=== PATIENT | female | born 1995 | race Asian ===

== ENCOUNTER 2016-10-01 18:08 | Emergency (ER) | payer OTHER ==
[~2016-10-01] VITALS: Ht 167.6 cm; Wt 61.5 kg
[~2016-10-01 18:08] MED LIST: IBUP-232 PO; Z.0.NO CURRENT MEDS
[2016-10-01 18:11] VITALS: BP 110/72; PULSE 80; RESP 16; TEMP 97.9; O2SAT 98
[2016-10-01] MEDS ORDERED: BIRTH CONTROL PILLS (18:26)
--- NOTE | 2016-10-01 19:35 | PD ---
HPI Chief Complaint: Injury Time Seen by Provider: 19:15 Travel History International Travel<30 days: No Contact w/Intl Traveler<30days: No Traveled to known affect area: No History of Present Illness HPI 21-year-old female presents for evaluation of right fifth toe pain. She reports that prior to arrival she was in a foam pit and she hit her right fifth toe against a solid object. She now has pain in the shaft of the right fifth toe, aching, worse with palpation or movement. Denies any pain in the other toes or in the remaining aspects of the right foot. She has no other complaints at this time. PFSH Past Medical History Medical History: Denies Significant Hx Immunizations Current: Yes Tetanus Vaccination: > 5 Years Influenza Vaccination: No ?: Not LMP: 09/30/2015 Past Surgical History Surgical History: No Previous Surgery Social History Alcohol Use: No Tobacco Use: No Substance Use: No Allergies-Medications (Allergen,Severity, Reaction): Coded Allergies: No Known Allergies (Verified , 10/01/16) Reported Meds & Prescriptions Reported Meds & Active Scripts Active Zofran (Ondansetron HCl) 4 Mg Tab 4 Mg PO Q6HR PRN Ibuprofen 800 Mg Tab 800 Mg PO Q6HR PRN Tylenol-Codeine #3 (Acetaminophen-Codeine) 300-30 mg Tab 1 Tab PO Q4H PRN Reported [ Control Pills] Review of Systems Musculoskeletal: Positive: Limited ROM, Pain Skin: Positive Other (denies open wounds) Physical Exam Narrative GENERAL: Well-developed well-nourished female in no acute distress SKIN: Warm and dry. Extremities: There is tenderness to palpation along the shaft of the right fifth toe, in particular the proximal aspect. There is no tenderness to palpation to the metatarsals or the first through fourth toes. No open wounds. Data Data Last Documented VS Vital Signs Date Time Temp Pulse Resp B/P Pulse Ox O2 Delivery O2 Flow Rate FiO2 10/01/16 18:26 Room Air 10/01/16 18:11 97.9 80 16 110/72 98 Orders Toe (Min 2vws) (10/01/16 ) Toe (Min 2vws) (10/01/16 ) Acetamin-Codeine 300-30 Mg (Tylenol-Code (10/01/16 20:30) Ibuprofen (Motrin) (10/01/16 20:30) Ondansetron Odt (Zofran Odt) (10/01/16 20:30) Splint Or Brace Apply/Monitor (10/01/16 21:01) [facility] Medical Decision Making Medical Screen Exam Complete: Yes Emergency Medical Condition: Yes Medical Record Reviewed: Yes Interpretation(s) Right fifth toe x-ray There is a mildly displaced oblique fracture of the distal aspect of the right fifth toe proximal phalanx with slight lateral displacement and angulation of the minor distal fragment. Postreduction x-rayCONCLUSION: 1. Status post closed reduction of oblique fracture involving the right 5th proximal phalangeal shaft with no significant residual displacement noted. Differential Diagnosis Toe fracture, toe dislocation, toes sprained Narrative Course 21-year-old female with right fifth toe fracture. X-ray reveals a mildly displaced oblique fracture of the distal aspect of the right fifth toe proximal phalanx. Fracture reduction was performed and the luis tape splint was applied. Postreduction x-ray reveals good alignment with no residual displacement noted. The patient will be discharged with a postop shoe, pain medication, Zofran. The patient is traveling to [place] in 2 days to study abroad, she is encouraged to follow-up there in 1-2 weeks for recheck. Procedures Procedure Narrative Right fifth toe fracture reduction: The right fifth toe was prepped with Betadine. Digital block performed utilizing 1% lidocaine. While providing traction the fracture fragment was reduced. A luis tape splint was applied. Patient tolerated procedure well. Diagnosis Primary Impression: Fracture of fifth toe, right, closed Qualified Code: S92.501A - Fracture of fifth toe, right, closed, initial encounter Referrals: [employer] Primary Care Physician Additional Instructions: Follow-up in 1-2 weeks in [place] with a primary care physician or lighting equipment operator for recheck. Luis tape splint. Postop shoe or fracture walking boot when walking. Pain medication as needed. Do not drive, drink alcohol when taking Tylenol with Codeine as it may cause sedation. Sometimes codeine causes nausea so take Zofran as needed for nausea. Take ibuprofen with meals to prevent gastritis. Elevate the right extremity over the next few days to reduce swelling. Ice pack several times a day 10-15 minutes at a time to reduce swelling. Return for any emergent medical conditions. Med/Other Pt SpecificInfo: Prescription(s) given, Orthopedic Instructions Scripts Ondansetron (Zofran)4 Mg Tab4 Mg PO Q6HR PRN (NAUSEA OR VOMITING) #20 TAB Ref 0 Prov:Eleanor Stuart DO 10/01/16 Ibuprofen 800 Mg [id number] Mg PO Q6HR PRN (PAIN) #40 TAB Ref 0 Prov:Eleanor Stuart DO 10/01/16 Acetaminophen-Codeine (Tylenol-Codeine #3)300-30 mg Tab1 Tab PO Q4H PRN (PAIN) # 20 TAB Ref 0 Prov:Eleanor Stuart DO 10/01/16 Disposition: 01 DISCHARGE HOME Condition: Stable Oswald Tse Oct 01, 2016 19:35
--- NOTE | 2016-10-01 19:57 | RADRPT ---
EXAM DATE/TIME: 10/01/2016 19:40 [facility] COMPARISON: No previous studies available for comparison. INDICATIONS : Pain from trampoline fall. MEDICAL HISTORY : None. SURGICAL HISTORY : None. ENCOUNTER: Initial ACUITY: 1 day PAIN SCORE: 10/10 LOCATION: Right 5th digit. FINDINGS: There is a mildly displaced oblique fracture of the distal aspect of the right fifth toe proximal pha lanx with slight lateral displacement and angulation of the minor distal fragment. The articulations remain grossly intact. CONCLUSION: Fifth toe fracture as above Carmelo Singh MD on October 01, 2016 at 19:55 Board Certified Radiologist. This report was verified electronically.
[2016-10-01] MEDS ORDERED: ONDANSETRON ODT 4 MG TAB PO ONE (20:30)
[2016-10-01] MEDS ORDERED: IBUPROFEN 400 MG TAB PO ONE (20:30)
[2016-10-01] MEDS ORDERED: ACETAMINOPHEN/CODEINE 300 MG/30 MG TAB PO ONE (20:30)
[2016-10-01] MEDS ORDERED: TYLETAB34 PO (20:58)
[2016-10-01] MEDS ORDERED: IBUP800T23 PO (20:58)
[2016-10-01] MEDS ORDERED: ZOFR4TAB PO (20:58)
--- NOTE | 2016-10-01 21:08 | RADRPT ---
EXAM DATE/TIME: 10/01/2016 20:46 [facility] COMPARISON: TOE RIGHT 5TH DIGIT(MIN 2VWS), October 01, 2016, 19:40. INDICATIONS : Post reduction, fell MEDICAL HISTORY : None. SURGICAL HISTORY : None. ENCOUNTER: Initial ACUITY: 1 day PAIN SCORE: 0/10 LOCATION: Right 5th toe FINDINGS: There has been closed reduction of the oblique fracture involving the right 5th proximal phalangeal s haft. No significant residual displacement is noted. CONCLUSION: 1. Status post closed reduction of oblique fracture involving the right 5th proximal phalangeal shaf t with no significant residual displacement noted. Salvador Smith MD on October 01, 2016 at 21:01 Board Certified Radiologist. This report was verified electronically.
[2017-01-09] MEDS ORDERED: DESO1TAB14 PO (12:14)
== END 2016-10-01 21:32 | disposition home or self-care (01) ==
LOC: NEPB 18:08
DX: S92.501A Displaced unspecified fracture of right lesser toe(s), initial encounter for closed fracture (principal); W22.09XA Striking against other stationary object, initial encounter
CPT/HCPCS: 28515; 73660; 99283; L3260